=== PATIENT | female | born 1955 | race Caucasian/White ===

== ENCOUNTER 2025-05-22 16:44 | Observation (INO) | payer MEDICARE, OTHER, SELFPAY ==
[2025-05-22] VITALS (9 sets, daily range): BP systolic 91–137; BP diastolic 52–80; BMI 27.0
--- NOTE | 2025-05-22 10:02 | ED.GENMED ---
History of Present Illness
<CAYDEN Calderon - Last Filed: 05/22/25 16:35>
General
Chief Complaint: Musculo-Skeletal Complaint
Source: patient
Exam Limitations: none
Time Seen by Provider: 05/22/25 09:09
Nursing documentation reviewed up to this point in time: agreed with
History of Present Illness
History of Present Illness:
Patient is a 69-year-old female with past medical history of renal cancer, right right nephrectomy, cholecystectomy appendectomy who presents to the ER for evaluation. Patient started with pain to her left groin and left hip since .
She was hospitalized at [facility] for 5 days. That time she had an MRI of her back and left hip. She was seen by neurosurgeon. She was initially diagnosed with femoral nerve impingement. She went home and then was rehospitalized for
3 days for persistent pain was also diagnosed with bursitis. She was sent home with Percocet with instructions to follow-up with orthopedics. She has a left hip replacement done by Dr. Gupta 10 years ago and they ruled out infection while she
was hospitalized at [facility]. She denies any fever chills or injury. She reports this pain started spontaneously. She was seen by and had an epidural injection for improved the following day however since then pain has worsened.
She did again see Dr. Diaz on Wednesday (no yesterday ) this lady and was recommended to have an MRI of her left leg along with an EMG. Patient does come with prescriptions which include rule out strain of tibialis anterior tendon, myositis.
she complains today however of increasing pain not relieved with Percocet.
Past History
<CAYDEN Calderon - Last Filed: 05/22/25 16:35>
Past History
ED Past Medical History: Cancer and Hypercholesterolemia
ED Past Surgical History: Appendectomy, Cholecystectomy, Orthopedic and Urological
Social History
Tobacco: Non-smoker
Alcohol: None
Drug: None
Personal:
Living: with family
Phy Exam
<CAYDEN Calderon - Last Filed: 05/22/25 16:35>
General Physical Exam
General Presentation: no apparent distress
General age: appears stated age
General Skin: warm and dry
General Habitus: normal
General Mental: alert
General Hydration: appears well hydrated
Neurological Exam
Neurological Exam: alert and oriented x3
Musculoskeletal Exam
Musculoskeletal Exam: other (Normal inspection to left lower extremity no calf swelling non erythema, full rom compartment soft normal pulses)
Skin Exam
Skin Exam: normal color and warm/dry
Psychiatric Exam
Psychiatric Exam: normal mood/affect
Course
<CAYDEN Calderon - Last Filed: 05/22/25 16:35>
Orders/Labs/Results
Orders:
Orders
05/22/25 Lunch
Cholesterol Lowering
At Your Request: Full Participation
Cholesterol Lowering: Sodium, 2 Gram
05/22/25 10:07
0.9% Sodium Chloride 1000 ml [Nss] 1,000 ml IV BOLUS
Morphine Sulfate 4 mg IV NOW STA
05/22/25 10:30
Basic Metabolic Panel Urgent
Complete Blood Count/With Diff Urgent
05/22/25 11:39
HYDROmorphone [Dilaudid] 1 mg IV NOW STA
05/22/25 11:54
Add On- LAB Urgent
Tests Added?: Thiscpk
05/22/25 12:07
Creatine Phosphokinase Routine
05/22/25 12:11
Venous Doppler Lwr Ext Left [US Periph Venous LOWER Ext LT] Urgent
Comment:
Reason For Exam: pain
05/22/25 14:44
HYDROmorphone [Dilaudid] 0.5 mg IV NOW STA
05/22/25 16:00
Admit Patient As Directed
Co-Sign Provider:
Level of Care: Observation services
Assign to:: Medical/Surgical
Physician / Group:
Diagnosis: Left Kaufman pain- possible fibular pathology
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
4.0 x 3.9 cm
Code Status As Directed
Resuscitation Status: Full Code
Acetaminophen [Tylenol] 650 mg PO Q4HWA
Bisacodyl [Dulcolax] 10 mg RECTAL [id number] PRN
Docusate W/Senna [Senokot-S] 1 tablet PO BIDPRN PRN
HYDROmorphone [Dilaudid] 0.5 mg IV Q4HPRN PRN
Ondansetron Injectable [Zofran] 4 mg IV Q6HPRN PRN
Polyethylene Glycol Powder [Miralax] 17 grams PO DAILYPRN PRN
CR Leg Tibia/fibula Left 2 Vw Routine
Comment:
Reason For Exam: left kaufman pain
PT Consult [Pt Eval And Treat] Routine
Activity Level: As Tolerated
05/22/25 16:01
Activity As Directed
Activity Level: As Tolerated
Vital Signs As Directed
Frequency: Per unit guidelines
05/22/25 16:02
Pneumatic Compression Sleeves As Directed
Type: Knee high
PRN Pain Medication Management As Directed
May give lesser potent ordered pain med per pt: Yes
preference::
Protocol:: Medication orders for pain may be administered in a
manner that supports deferring to patient preference
when the pt is:
- Requesting an ordered lesser potent pain medication.
Least to most potent pain medications are defined
as: acetaminophen < NSAID < tramadol < opioids
(morphine, oxycodone, hydromorphone).
- Requesting a lesser dose of the same medication IF
ORDERED.
- Requesting a less intrusive route of administration
if both routes are prescribed by the provider (PO <
IV).
DX Deep Vein Thrombosis Video Routine
05/22/25 16:15
Lidocaine [Lidocaine 4% Patch] 1 patch TOPICAL DAILY
Apply Lidocaine patch(s) to:: left kaufman
05/22/25 22:00
Docusate Sodium [Colace] 100 mg PO HS
Gabapentin [Neurontin] 100 mg PO HS
Polyethylene Glycol Powder [Miralax] 17 grams PO HS
05/23/25 06:00
Complete Blood Count/With Diff IN AM
Comprehensive Metabolic Panel IN AM
Abnormal Lab Results
05/22/25
10:30
Abs Immat Gran (auto) 0.1 H 10^3/uL
(0-0.05)
Absolute Monos (auto) 0.8 H 10^3/uL
(0.1-0.6)
Sodium 134 L mmol/L
(135-145)
Potassium 5.3 H mmol/L
(3.5-5.1)
BUN 20 H mg/dl
(7-17)
05/22/25 10:30
05/22/25 10:30
Vital Signs
Initial and Last Documented VS:
Initial Vital Signs
Temp Pulse Resp BP Pulse Ox
98.4 F 100 20 113/75 100
05/22/25 07:51 05/22/25 07:51 05/22/25 07:51 05/22/25 07:51 05/22/25 07:51
Last Documented Vital Signs
Temp Pulse Resp BP Pulse Ox
98.4 F 76 13 91/54 96
05/22/25 07:51 05/22/25 15:45 05/22/25 15:30 05/22/25 15:00 05/22/25 15:45
Separator Operator consulted with Physician
Separator Operator consulted with physician?: Yes
Name of Physician Consulted: DR Dejesus
<Malka Dejesus, DO - Last Filed: 05/22/25 12:37>
Orders/Labs/Results
Orders:
Orders
05/22/25 Lunch
Cholesterol Lowering
At Your Request: Full Participation
Cholesterol Lowering: Sodium, 2 Gram
05/22/25 10:07
0.9% Sodium Chloride 1000 ml [Nss] 1,000 ml IV BOLUS
Morphine Sulfate 4 mg IV NOW STA
05/22/25 10:30
Basic Metabolic Panel Urgent
Complete Blood Count/With Diff Urgent
05/22/25 11:39
HYDROmorphone [Dilaudid] 1 mg IV NOW STA
05/22/25 11:54
Add On- LAB Urgent
Tests Added?: Thiscpk
05/22/25 12:07
Creatine Phosphokinase Routine
05/22/25 12:11
Venous Doppler Lwr Ext Left [US Periph Venous LOWER Ext LT] Urgent
Comment:
Reason For Exam: pain
05/22/25 14:44
HYDROmorphone [Dilaudid] 0.5 mg IV NOW STA
05/22/25 16:00
Admit Patient As Directed
Co-Sign Provider:
Level of Care: Observation services
Assign to:: Medical/Surgical
Physician / Group:
Diagnosis: Left Kaufman pain- possible fibular pathology
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
4.0 x 3.9 cm
Code Status As Directed
Resuscitation Status: Full Code
Acetaminophen [Tylenol] 650 mg PO Q4HWA
Bisacodyl [Dulcolax] 10 mg RECTAL [id number] PRN
Docusate W/Senna [Senokot-S] 1 tablet PO BIDPRN PRN
HYDROmorphone [Dilaudid] 0.5 mg IV Q4HPRN PRN
Ondansetron Injectable [Zofran] 4 mg IV Q6HPRN PRN
Polyethylene Glycol Powder [Miralax] 17 grams PO DAILYPRN PRN
CR Leg Tibia/fibula Left 2 Vw Routine
Comment:
Reason For Exam: left kaufman pain
PT Consult [Pt Eval And Treat] Routine
Activity Level: As Tolerated
05/22/25 16:01
Activity As Directed
Activity Level: As Tolerated
Vital Signs As Directed
Frequency: Per unit guidelines
05/22/25 16:02
Pneumatic Compression Sleeves As Directed
Type: Knee high
PRN Pain Medication Management As Directed
May give lesser potent ordered pain med per pt: Yes
preference::
Protocol:: Medication orders for pain may be administered in a
manner that supports deferring to patient preference
when the pt is:
- Requesting an ordered lesser potent pain medication.
Least to most potent pain medications are defined
as: acetaminophen < NSAID < tramadol < opioids
(morphine, oxycodone, hydromorphone).
- Requesting a lesser dose of the same medication IF
ORDERED.
- Requesting a less intrusive route of administration
if both routes are prescribed by the provider (PO <
IV).
DX Deep Vein Thrombosis Video Routine
05/22/25 16:15
Lidocaine [Lidocaine 4% Patch] 1 patch TOPICAL DAILY
Apply Lidocaine patch(s) to:: left kaufman
05/22/25 22:00
Docusate Sodium [Colace] 100 mg PO HS
Gabapentin [Neurontin] 100 mg PO HS
Polyethylene Glycol Powder [Miralax] 17 grams PO HS
05/23/25 06:00
Complete Blood Count/With Diff IN AM
Comprehensive Metabolic Panel IN AM
Abnormal Lab Results
05/22/25
10:30
Abs Immat Gran (auto) 0.1 H 10^3/uL
(0-0.05)
Absolute Monos (auto) 0.8 H 10^3/uL
(0.1-0.6)
Sodium 134 L mmol/L
(135-145)
Potassium 5.3 H mmol/L
(3.5-5.1)
BUN 20 H mg/dl
(7-17)
05/22/25 10:30
05/22/25 10:30
Vital Signs
Initial and Last Documented VS:
Initial Vital Signs
Temp Pulse Resp BP Pulse Ox
98.4 F 100 20 113/75 100
05/22/25 07:51 05/22/25 07:51 05/22/25 07:51 05/22/25 07:51 05/22/25 07:51
Last Documented Vital Signs
Temp Pulse Resp BP Pulse Ox
98.4 F 76 13 91/54 96
05/22/25 07:51 05/22/25 15:45 05/22/25 15:30 05/22/25 15:00 05/22/25 15:45
<CAYDEN Calderon - Last Filed: 05/22/25 16:35>
MDM/Problems Addressed
Differential Diagnosis Includes:
Not limited to acute muscle pain, radiculopathy
MDM/Problems Addressed:
As documented above patient is a 69-year-old female who was hospitalized at [facility] after Thanksgiving for left groin hip pain. She was initially diagnosed with femoral nerve impingement versus bursitis. Since then she has had pain
predominantly in the left lower leg kaufman area. She was seen by pain management several days ago had an epidural with minimal relief however pain has since worsened. She was seen again yesterday and recommended MRI of her lower leg and EMG. She
presents today with increasing pain in the left lower leg region. She denies any swelling on exam there is no obvious swelling compartments are soft she denies injury. No evidence of infection on exam normal labs with normal white count CPK
pending at this time. Denies any bowel or bladder incontinence. I did attempt to get a hold of Dr. Bardales. I did not get a text back. Patient was given pain medication here however with pain will require admission will likely need other
additional imaging.
US neg for dvt
<CAYDEN Calderon - Last Filed: 05/22/25 16:35>
*Radiology
Radiology exam reviewed: radiology read reviewed
*Pulse Oximetry
SaO2: 100
Oxygen Mode of Delivery: Room air
Patient hypoxic: no
*Critical Care Note
Total Time (30-74mins, 75-104mins- exclusive of procedures): Not Applicable
ED Attending Note
<CAYDEN Calderon - Last Filed: 05/22/25 16:35>
-
Portions of this chart may have been created with voice recognition software.� Occasional wrong word or��sound alike� substitutions may have occurred due to the inherent limitations of voice recognition software.
<Malka Dejesus DO - Last Filed: 05/22/25 12:37>
ED Attending Note
Patient seen and examined by attending physician: Yes
I performed the substantive portion of visit, reviewed & personally made and approve the management plan that is documented in note by myself or RAYA.: Yes
I performed a history and physical exam of patient and discussed management with resident, I reviewed resident's note and agree with documented findings and plan of care.: Yes
ED Attending Note:
69-year-old female presenting to the emergency department with reported severe left kaufman pain. Patient reports about 3 to 4 weeks ago, she was hospitalized at [facility] for left groin pain. At that time she was thought to have femoral nerve
impingement. Reports that she had an injection in her groin with no improvement. They did do MRIs of her back, noted some degenerative disease, however no significant pathology reported. She eventually followed up with spinal orthopedics, who
thought that her symptoms may be from underlying lumbar disc disease, did a lumbar steroid injection. Patient again notes no improvement of pain. All the while, has also been having left kaufman pain, however notes that pain is only on the lateral
aspect of the anterior portion of the kaufman. Her orthopedic doctor had recommended an MRI to that region. She called his office today due to worsening pain, was advised to come to the hospital. Denies any preceding injuries. Vital signs are
normal.
On exam, patient is resting comfortably, no acute distress, however does have some discomfort secondary to pain. Externally, no abnormality to the left leg. No significant swelling, no erythema. Range of motion intact. Distal sensation and
pulses intact. No concern at this time for any spinal compromise given intact strength and sensation. No concern for any neurovascular compromise. No concern for acute infection. Patient's pain does appear to be neuropathic in quality given
focally located to the kaufman, hypersensitive on palpation. Labs obtained prior to my assessment, normal electrolyte panel, normal CPK. Message sent to patient's orthopedic doctor. However at this time patient is requiring multiple doses of pain
medication. Plan for admission for pain control and possible MRI for additional information on source of pain
Discharge Plan
Departure
Patient Disposition: Admit
Date of Disposition: 05/22/25
Time of Disposition: 12:18
Admit to: Med/Surg
Presentation/result/management discussed w/ accepting MD/DO: Hospitalist
Patient with high blood pressure during this ER visit?: No
Condition: Fair
Covid-19: Not Applicable
Discharge Problem:
Intractable left lower leg pain
Prescriptions:
No Action
polyethylene glycol 3350 [Miralax] 17 gram Powder In Packet
17 g PO HS
oxycodone-acetaminophen [Percocet] 5-325 mg Tablet
1 tab PO Q4HPRN PRN (Reason: severe pain)
docusate sodium [Colace] 100 mg Capsule
100 mg PO HS
vitamin D3-vit K1-vit MK4-MK7 50-500-1,500 mcg Capsule
1 cap PO DAILY
Referrals:
Rohan Coleman MD [Family Provider, Family Practice]
Interventions
Interventions:
*General Assessment Last Done: 05/22/25 10:26
*Neglect/Abuse Screening Last Done: 05/22/25 10:26
*ED COVID-19 Vaccine History Last Done: 05/22/25 10:26
*ED Influenza Vaccine History Last Done: 05/22/25 10:26
[facility] Fall Risk Assessment Tool Last Done: 05/22/25 10:29
*Risk Screen - Suicide (C-SSRS) Last Done: 05/22/25 10:26
ED-Musculoskeletal Assessment Last Done: 05/22/25 12:41
Discharge Date and Time
Print Language: AZERBAIJANI
[2025-05-22] MEDS: MORPHINE SULFATE 4 MG IV (10:23)
[2025-05-22] MEDS: NSS 1000 IV (10:23)
[2025-05-22 10:48] LABS: Hematocrit 44.8 % (37.0-47.0); Hemoglobin 15.3 g/dL (12.0-16.0); Mean Corp Hgb Conc. 34.2 g/dL (33.0-37.0); Mean Corpuscular Volume 90.7 fL (81.0-99.0); Nucleated Red Blood Cells % 0 %; Platelet Count 353 10^3/uL (130-400); Red Cell Dist. Width 12.2 % (11.5-14.5)
[2025-05-22 11:16] LABS: Blood Urea Nitrogen 20 mg/dl (7-17); Calcium 9.5 mg/dl (8.4-10.2); Carbon Dioxide 24 mmol/L (22-30); Chloride 105 mmol/L (98-107); Estimated Creatinine Clearance 51 ml/min; Glucose 83 mg/dl (70-99); Potassium 5.3 mmol/L (3.5-5.1); Sodium 134 mmol/L (135-145); eGFR > 60.00
[2025-05-22] MEDS: DILAUDID 0.5 MG IV (14:46)
[2025-05-22] MEDS: TYLENOL PO (19:35)
[2025-05-22] MEDS: TYLENOL 650 MG PO (19:46)
[2025-05-22] MEDS: ROXICODONE 5 MG PO (19:46)
[2025-05-22] MEDS: TUMS CHEWABLE TABLET 200 MG PO (19:46)
[2025-05-22] MEDS: MIRALAX 17 GRAMS PO (21:05)
[2025-05-22] MEDS: COLACE 100 MG PO (21:05)
[2025-05-22] MEDS: NEURONTIN 100 MG PO (21:05)
[2025-05-22] MEDS: PERCOCET 5/325 1 TABLET PO (22:43)
[2025-05-23] MEDS: TYLENOL PO (02:56)
[2025-05-23] MEDS: PERCOCET 5/325 1 TABLET PO ×5 (03:04→21:46)
--- NOTE | 2025-05-23 06:37 | W.PN.UPDATE ---
Update Note
Progress Note Update
RN reported patient requesting for other medications as she don't want Morphine. stable VS Oxycodone ordered.
Patient with less pain relief and now asking for a different pain medications.
Patient seen and evaluated. Patient requesting Percocet to try once.
Addressed the overdosing of pain medications. Dc'd oxycodone, Morphine
Patient feels much relief from Percocet. Will order prn. change timing of Tylenol for now.
[2025-05-23 08:00] VITALS: BP 104/74
[2025-05-23 08:13] LABS: Hematocrit 41.3 % (37.0-47.0); Hemoglobin 14.0 g/dL (12.0-16.0); Mean Corp Hgb Conc. 33.9 g/dL (33.0-37.0); Mean Corpuscular Volume 91.4 fL (81.0-99.0); Nucleated Red Blood Cells % 0 %; Platelet Count 346 10^3/uL (130-400); Red Cell Dist. Width 12.2 % (11.5-14.5)
[2025-05-23 08:36] LABS: ALT (SGPT) 38 U/L (0-35); AST (SGOT) 24 U/L (14-36); Albumin 3.7 g/dl (3.5-5.0); Alkaline Phosphatase 74 U/L (38-126); Blood Urea Nitrogen 13 mg/dl (7-17); Calcium 9.6 mg/dl (8.4-10.2); Carbon Dioxide 24 mmol/L (22-30); Chloride 105 mmol/L (98-107); Estimated Creatinine Clearance 51 ml/min; Glucose 89 mg/dl (70-99); Sodium 135 mmol/L (135-145); Total Protein 6.1 g/dl (6.3-8.2); eGFR > 60.00
[2025-05-23 09:07] LABS: Potassium 4.3 mmol/L (3.5-5.1)
--- NOTE | 2025-05-23 10:52 | CM ---
Addendum entered by Tonya Vallejo 05/23/25 11:03:
GUARDADO letter explained; form signed @ 1100
Original Note:
Met with patient and at bedside
Pharmacy verified: [facility] @ [address] [place] [address]
Lives w/spouse; multilevel home; half bath 1st floor
PLOF: was independent with ambulation, stairs and ADLs; retired; drives; no DME
NO SNF or Home Health utilization history
will transport home
Plan: discharge to home when medically stable; Case Management will monitor for needs
--- NOTE | 2025-05-23 11:27 | W.PN.HOSP.TC ---
Today's Communication/Plan
-
MRI lower leg
Assessment / Plan
Assessment / Plan
69F w/ renal cell carcinoma s/p resection, HTN, Hashimotos, prior left hip replacement 10 years ago complicated by left iliotibial band pain since then, presenting with left longoria pain constant, with numbness. She was recently admitted [facility]
for left hip and groin pain. She had MRI of lumbar spine which showed degenerative disc disease. She received groin injection, and was discharged. She continues to have pain in the left hip and groin but not that severe. She received back
injection 4 days ago by orthopedic by Dr. Young without improvement. Ortho was concern for lower extremity pathology rather than lumbar/hip pathology.
Intractable pain of left leg
X-ray does not show acute fracture
Consulted Ortho, they rec MRI lower leg - ordered
If negative will need to consider lumbar pathology, consider spine consult, recent MRI lumbar spine shows DDD, pain was not improved with outpatient spine injection.
PRN IV morphine and p.o. Percocet
Gabapentin, lidocaine patch
PT
Constipation
Bowel regimen
Anticipated Discharge: Within 24 hours
Subjective/Interval History
-
Date of Service: May 23, 2025
Patient lying comfortably in bed, she states she is in severe pain in her left longoria, sharp, constant, worse with standing on it. Her is at bedside. He states that he was called by Dr. Diaz last night who told them that the patient
would be getting an inpatient MRI of her leg. I advised them that the hospitalist who saw them yesterday did not order an inpatient MRI, he did mention that the patient had an order for an outpatient MRI already. Patient and were surprised
as they had felt that that is what they were waiting for was an MRI. She notes that she did receive the order for the outpatient MRI however the wait was very long for the appointment and she was in intractable pain and Dr. Diaz had told her
to come in to [facility] for it. Consulted Ortho, they note that I can order the MRI and if that shows anything then they will see the patient however they feel that the patient's constellation of symptoms is more consistent with lumbar etiology
and if MRI lower leg negative she would need spine surgery consult. 60 min spent in patient care,
Objective Data
-
Labs:
Laboratory Results
05/23/25
07:55
WBC 6.9
Hgb 14.0
Hct 41.3
Plt Count 346
Sodium 135
Potassium 4.3
Chloride 105
Carbon Dioxide 24
BUN 13
Creatinine 0.9
Glucose 89
Calcium 9.6
Total Bilirubin 0.4
AST 24
ALT 38 H
Alkaline Phosphatase 74
Vital Signs:
Vital Signs
Temp Pulse Resp BP Pulse Ox
97.3 F 91 18 104/74 100
05/23/25 08:00 05/23/25 08:00 05/23/25 08:00 05/23/25 08:00 05/23/25 08:00
Review of Systems
-
History Source: Patient
All other systems: Reviewed and negative
Physical Exam
-
General: No Apparent Distress
HEENT: Moist Mucous Membranes, Anicteric and PERRLA
Respiratory: Clear to Auscultation; Negative Wheezes, Rales or Rhonchi
Cardiac: Regular Rhythm and S1/S2; Negative Murmur, Rub or Gallop
GI: Soft, Nontender, Nondistended and Normal Bowel Sounds
Musculoskeletal: No Edema
Skin: Warm and Dry; Negative Rash, Ulcers or Lesions
Neuro: Awake and AO x 3
Hematologic / Lymphatic: No Lymphadenopathy
Psych: Calm
Data Reviewed
-
Diagnostic Radiology: Report Reviewed by me and Discussed with Family
Labs: Labs Reviewed by me
[2025-05-23 16:27] VITALS: BP 120/64
[2025-05-23] MEDS: COLACE 100 MG PO (21:47)
[2025-05-23] MEDS: NEURONTIN 100 MG PO (21:47)
[2025-05-23] MEDS: MIRALAX PO (21:47)
[2025-05-23 22:45] VITALS: BP 120/78
[2025-05-24] MEDS: ULTRAM 25 MG PO (01:03)
[2025-05-24] MEDS: PERCOCET 5/325 1.5 TABLET PO (03:28)
[2025-05-24] MEDS: PERCOCET 5/325 1 TABLET PO (07:45)
[2025-05-24 07:52] VITALS: BP 135/75
--- NOTE | 2025-05-24 09:39 | W.DCSUMMARY ---
Discharge Summary
Discharge Data
Date of Admission: 05/22/25
Date of Discharge: 05/24/25
Total time spent discharging patient (in min): 31
-
Pending Results: No
Hospital Course
Attending physician on day of discharge:
Susie Grullon MD
Discharge diagnosis:
Left leg pain
Secondary diagnoses:
Lumbar DDD
Consultations:
Ortho
Procedures:
None
Hospital course:
69F with intractable left leg pain, sent in by Dr. Young for expedited left lower leg MRI. MRI did not show any acute findings. Patient had no change in her pain, she was treated with her home regimen of Percocet, did not wish to try
alternative pain medication. Patient will follow-up with Dr. Young in clinic tomorrow.
Diagnostic Findings:
MRI:No MRI evidence for an acute abnormality of the left lower leg.
L tib-fib x-ray:There is no recent cortical fracture, dislocation or focal bony destructive process.
No radiopaque soft tissue foreign body is seen.
Physical exam on discharge:
Gen: NAD
HEENT: PERRLA, EOMI, MMM, neck supple
Cards: RRR, no M/G/R
Resp: Lungs CTAB, no W/R/R
GI: soft, NT/ND/NABS
MSK: No edema
Skin: warm and dry, no rash, ulcer or lesions. Bruise on right arm from IV.
Heme: No LAD
Psych: Calm
Neuro: AAOx3
Discharge disposition:
Home
Discharge Plan
-
Patient Disposition: Home (Routine Discharge)
Discharge Diagnosis/Procedures: Left leg pain
Diet: Regular
Activity: No restrictions
Referrals:
Rohan Coleman MD [Family Provider, Family Practice]
Kris Diaz MD [Active, Orthopedics] - 05/25/25
Prescriptions:
Continued
polyethylene glycol 3350 [Miralax] 17 gram Powder In Packet
17 g PO HS
oxycodone-acetaminophen [Percocet] 5-325 mg Tablet
1 tab PO Q4HPRN PRN (Reason: severe pain)
docusate sodium [Colace] 100 mg Capsule
100 mg PO HS
vitamin D3-vit K1-vit MK4-MK7 50-500-1,500 mcg Capsule
1 cap PO DAILY
Discharge Orders:
Discharge Patient (As Directed); Ordered 05/24/25
Ordered By: Susie Grullon
Discharge Date and Time
Print Language: IRISH
--- NOTE | 2025-05-24 11:18 | CM ---
CM reviewed chart, patient seen bedside with spouse.
CM discussed therapy recommendations of outpatient PT- patient declining at this time.
Patient confirms transport home.
CM will continue to follow for d/c needs.
Plan; home no needs
== END 2025-05-24 11:40 | disposition home or self-care (01) ==
LOC: 1 ACUTE 16:44
PROVIDERS: Nurse Practitioner; Student in an Organized Health Care Education/Training Program; ADMITTING PHYSICIAN Hospitalist; ATTENDING PHYSICIAN Internal Medicine; EMERGENCY PHYSICIAN Student in an Organized Health Care Education/Training Program; FAMILY PHYSICIAN Family Medicine
DX: M79.662 Pain in left lower leg (principal); M25.552 Pain in left hip; I71.40 Abdominal aortic aneurysm, without rupture, unspecified; M51.369 Other intervertebral disc degeneration, lumbar region without mention of lumbar back pain or lower extremity pain; K59.00 Constipation, unspecified; I10 Essential (primary) hypertension; Z85.528 Personal history of other malignant neoplasm of kidney; Z90.49 Acquired absence of other specified parts of digestive tract; Z96.642 Presence of left artificial hip joint; C64.9 Malignant neoplasm of unspecified kidney, except renal pelvis; E06.3 Autoimmune thyroiditis
CPT/HCPCS: 73590; 73718; 80048; 80053; 82550; 85025; 93971; 96361; 96374; 96375; 96376; 97162; 99284; G0378

== ENCOUNTER → 2025-05-28 08:54 | Outpatient (REF) | payer MEDICARE, OTHER, SELFPAY | LOC: EMG 08:54 | PROVIDERS: ATTENDING PHYSICIAN Pain Medicine Interventional Pain Medicine; FAMILY PHYSICIAN Family Medicine | DX: S86.219A Strain of muscle(s) and tendon(s) of anterior muscle group at lower leg level, unspecified leg, initial encounter (principal); R20.0 Anesthesia of skin | CPT/HCPCS: 95885; 95909 ==